=== PATIENT | male | born 1985 | race Caucasian/White ===

== ENCOUNTER 2021-10-13 16:55 | Emergency (ER) | payer MEDICAID, SELFPAY ==
[2021-10-13 17:42] VITALS: BP 139/87; PULSE 99; RESP 14; TEMP 36.7; O2SAT 96; BMI 34.7
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
[2021-10-13 18:23] VITALS: BP 131/75; PULSE 95; RESP 16; O2SAT 94
[2021-10-13] MEDS: clindamycin 150 mg/mL SDV 6 mL 600 MG IM (18:46)
== END 2021-10-13 18:50 | disposition home or self-care (01) ==
PROVIDERS: Emergency Provider Physician Assistant
DX: T24.202A Burn of second degree of unspecified site of left lower limb, except ankle and foot, initial encounter (principal); X17.XXXA Contact with hot engines, machinery and tools, initial encounter
CPT/HCPCS: 96372; 99284; J3490